=== PATIENT | male | born 1985 | race Caucasian/White ===

== ENCOUNTER 2021-11-30 15:42 | Emergency (ER) | payer OTHER ==
[~2021-11-30] VITALS: Ht 188 cm; Wt 73.5 kg
== END 2021-11-30 18:19 | disposition home or self-care (01) ==
LOC: ED 15:42
DX: K64.5 Perianal venous thrombosis (principal); Z88.2 Allergy status to sulfonamides
CPT/HCPCS: 99282

== ENCOUNTER 2024-03-09 15:49 | Emergency (ER) | payer OTHER ==
[~2024-03-09] VITALS: Ht 188 cm; Wt 82.5 kg
[2024-03-09] MEDS ORDERED: BUPRENORPHINE-1 EACH SL (15:59)
[2024-03-09] MEDS ORDERED: HYDROmorphone HCL 1 MG/ML SYR IV ONE (16:00)
[2024-03-09] MEDS ORDERED: LORazepam 2 MG/ML VIAL IV ONE (16:45)
[2024-03-09] MEDS ORDERED: ETOMIDATE 40 MG/20 ML VIAL IV ONE (17:00)
[2024-03-09] MEDS ORDERED: PERCOCET 5-3251 EACH PO (17:59)
[2024-03-10 01:15] VITALS: BP 157/87
[2024-03-10] MEDS ORDERED: ETOMIDATE 40 MG/20 ML VIAL IV ONE (15:00)
== END 2024-03-10 01:15 | disposition home or self-care (01) ==
LOC: ED 15:49
DX: S43.014A Anterior dislocation of right humerus, initial encounter (principal); Z88.2 Allergy status to sulfonamides; V00.131A Fall from skateboard, initial encounter; Y93.51 Activity, roller skating (inline) and skateboarding
CPT/HCPCS: 23650; 73030; 99152; 99283-25; J1171; J2060